=== PATIENT | male | born 1935 ===

== ENCOUNTER 2017-04-12 13:26 | Emergency (ER) | payer MEDICARE ==
[2017-04-12 13:41] VITALS: BP 137/92; PULSE 83; TEMP 97; O2SAT 96
--- NOTE | 2017-04-12 14:16 | ED PDOC ---
HPI: SOB/CHF/COPD Time Seen by Provider: 04/12/17 13:46 Chief Complaint (Nursing): Shortness Of Breath Chief Complaint (Provider): Shortness Of Breath History Per: Patient History/Exam Limitations: no limitations Onset/Duration Of Symptoms: Hrs Current Symptoms Are (Timing): Still Present Additional Complaint(s): Koko Duong is an 81 year old male with a history of asthma, CAD, A-Fib, DVT , and has a defibrillator that presents to the ED with a chief complaint of shortness of breath and wheezing. Patient reports that he was attempting to swallow a multivitamin earlier today when he felt like it went "to the wrong place," at which point he began to develop his symptoms. Past Medical History Reviewed: Historical Data, Nursing Documentation, Vital Signs Vital Signs: Last Vital Signs Temp 97 F L 04/12/17 13:37 Pulse 83 04/12/17 13:37 Resp 24 04/12/17 14:04 BP 137/92 H 04/12/17 13:37 Pulse Ox 96 04/12/17 16:58 - Medical History PMH: Asthma, Atrial Fibrillation, CAD, Deep Vein Thrombosis - Surgical History Other surgeries: defibrillator - Family History Family History: States: Unknown Family Hx - Allergies Allergies/Adverse Reactions: Allergies Allergy/AdvReac Type Severity Reaction Status Date / Time Penicillins Allergy RASH Verified 04/12/17 13:45 Review of Systems Respiratory: Positive for: Shortness of Breath, Wheezing Physical Exam - Reviewed Nursing Documentation Reviewed: Yes Vital Signs Reviewed: Yes - Physical Exam Appears: Positive for: Non-toxic, No Acute Distress Head Exam: Positive for: ATRAUMATIC, NORMOCEPHALIC Skin: Positive for: Normal Color, Warm Eye Exam: Positive for: EOMI, Normal appearance, PERRL ENT: Positive for: Normal ENT Inspection Cardiovascular/Chest: Positive for: Regular Rate, Rhythm. Negative for: Murmur Respiratory: Positive for: Wheezing (minimal wheezing b/l). Negative for: Normal Breath Sounds Neurologic/Psych: Positive for: Alert, Oriented, Other (Patient is speaking in full sentences.). Negative for: Motor/Sensory Deficits - ECG O2 Sat by Pulse Oximetry: 96 (RA) Pulse Ox Interpretation: Normal Medical Decision Making Medical Decision Making: Impression: r/o Aspiration Plan: * Chest X-Ray, r/o aspiration * Reevaluation 15:00 Patient signed out to Dr. Miller pending Chest X-Ray. Scribe Attestation: Documented by Danae Hollis, acting as a scribe for Sharon Ortiz MD. Provider Scribe Attestation: All medical record entries made by the Scribe were at my direction and personally dictated by me. I have reviewed the chart and agree that the record accurately reflects my personal performance of the history, physical exam, medical decision making, and the department course for this patient. I have also personally directed, reviewed, and agree with the discharge instructions and disposition. Disposition - Clinical Impression Clinical Impression: Foreign body, Choking episode - Patient ED Disposition Is Patient to be Admitted: Transfer of Care - Disposition Disposition: Transfer of Care Disposition Time: 15:00 Condition: FAIR Instructions: Foreign Body Ingestion (ED) Forms: [employer] (Trinidadian) Patient Signed Over To: Jami Miller
--- NOTE | 2017-04-12 15:18 | ED PDOC ---
- ECG O2 Sat by Pulse Oximetry: 96 (RA) Medical Decision Making Medical Decision Makin:00 Patient signed out to me by Dr. Ortiz pending Chest X-Ray. 16:50 CT Chest FINDINGS: Patient status post AICD deployment with the generator identified at the upper left pectoralis region and leads exit identified extending into the right heart via left subclavian venous approach. LUNGS: Limited fibrotic changes are seen the bilateral pulmonary apices. No infiltrate or definitive pulmonary mass identified bilaterally. There is no central airway lesion appreciable. MEDIASTINUM: Unremarkable thoracic aorta. No aneurysm. Cardiac size is normal however extensive coronary artery atherosclerotic calcifications are identified. Main pulmonary artery unremarkable. No vascular congestion. No significant lymphadenopathy. PLEURA: No pleural fluid. No pneumothorax. BONES: There is T11 compression fracture of indeterminate age. UPPER ABDOMEN: Bilateral renal cysts are identified including a large left renal cyst measuring 11.7 x 9.1 cm. OTHER FINDINGS: None. IMPRESSION: 1. No retained radiodense foreign body is seen throughout the trachea and proximal lobar airways. Similarly, no suspicious findings are seen related to the visualized stomach or the esophagus. A small hiatal hernia is encountered nevertheless. 2. No infiltrate pleural or pericardial effusion or pneumothorax. 3. A mild T11 compression fracture is identified of indeterminate age. 4. Incidental bilateral renal cysts greater at the left than right kidney. Scribe Attestation: Documented by Danae Hollis, acting as a scribe for Jmai Miller MD. Provider Scribe Attestation: All medical record entries made by the Scribe were at my direction and personally dictated by me. I have reviewed the chart and agree that the record accurately reflects my personal performance of the history, physical exam, medical decision making, and the department course for this patient. I have also personally directed, reviewed, and agree with the discharge instructions and disposition. Disposition Doctor Will See Patient In The: Office Counseled Patient/Family Regarding: Diagnosis - Clinical Impression Clinical Impression: Foreign body, Choking episode - POA Present On Arrival: None - Disposition Disposition: Routine/Home Disposition Time: 16:56 Condition: FAIR Instructions: Foreign Body Ingestion (ED) Forms: [employer] (Taiwanese)
[2017-04-12 15:56] VITALS: RESP 24
--- NOTE | 2017-04-12 16:50 | CT ---
PROCEDURE: CT Chest without contrast HISTORY: r/o FB (medication tab) COMPARISON: Chest radiographs 11/03/2010. TECHNIQUE: Contiguous axial images were obtained through the chest without intravenous contrast enhancement. Sagittal and coronal reconstructions were performed. Radiation dose (DLP): 513.65 mGy-cm. This CT exam was performed using one or more of the following dose reduction techniques: Automated exposure control, adjustment of the mA and/or kV according to patient size, and/or use of iterative reconstruction technique. FINDINGS: Patient status post AICD deployment with the generator identified at the upper left pectoralis region and leads exit identified extending into the right heart via left subclavian venous approach. LUNGS: Limited fibrotic changes are seen the bilateral pulmonary apices. No infiltrate or definitive pulmonary mass identified bilaterally. There is no central airway lesion appreciable. MEDIASTINUM: Unremarkable thoracic aorta. No aneurysm. Cardiac size is normal however extensive coronary artery atherosclerotic calcifications are identified. Main pulmonary artery unremarkable. No vascular congestion. No significant lymphadenopathy. PLEURA: No pleural fluid. No pneumothorax. BONES: There is T11 compression fracture of indeterminate age. UPPER ABDOMEN: Bilateral renal cysts are identified including a large left renal cyst measuring 11.7 x 9.1 cm. OTHER FINDINGS: None. IMPRESSION: 1. No retained radiodense foreign body is seen throughout the trachea and proximal lobar airways. Similarly, no suspicious findings are seen related to the visualized stomach or the esophagus. A small hiatal hernia is encountered nevertheless. 2. No infiltrate pleural or pericardial effusion or pneumothorax. 3. A mild T11 compression fracture is identified of indeterminate age. 4. Incidental bilateral renal cysts greater at the left than right kidney.
== END 2017-04-12 17:11 | disposition home or self-care (01) ==
LOC: H.ER 13:26
DX: R09.89 Other specified symptoms and signs involving the circulatory and respiratory systems (principal); I25.10 Atherosclerotic heart disease of native coronary artery without angina pectoris; I48.91 Unspecified atrial fibrillation; J44.9 Chronic obstructive pulmonary disease, unspecified; K44.9 Diaphragmatic hernia without obstruction or gangrene; N28.1 Cyst of kidney, acquired; M48.54XA Collapsed vertebra, not elsewhere classified, thoracic region, initial encounter for fracture; Z86.718 Personal history of other venous thrombosis and embolism; Z88.0 Allergy status to penicillin